=== PATIENT | female | born 2005 | race African-American/Black ===

== ENCOUNTER 2024-06-22 21:50 | Emergency (ER) | payer MEDICAID, SELFPAY ==
[2024-06-22 22:00] VITALS: BP 115/61; PULSE 95; RESP 16; TEMP 36.4; O2SAT 94; BMI 29.9
--- NOTE | 2024-06-22 22:09 | ECG_ITS ---
Test Reason : SYNCOPE Blood Pressure : */* mmHG Vent. Rate : 82 BPM Atrial Rate : 82 BPM P-R Int : 180 ms QRS Dur : 84 ms QT Int : 370 ms P-R-T Axes : 40 10 17 degrees QTcB Int : 432 ms Normal sinus rhythm with sinus arrhythmia Normal ECG No previous ECGs available Referred By: Generic ED Physician Electronically Signed By: Alex Dan
[2024-06-22 22:27] LABS: Basophils Percent Auto 0.2 % (0-2); Eosinophils Absolute Auto 0.2 X10*3/uL (0.0-0.4); Eosinophils Percent Auto 4.5 % (0-4); Hematocrit 35.8 % (37.0-47.0); Hemoglobin 12.4 g/dl (12.0-16.0); Imm Gran Abs Auto 0.01 X10*3/uL (0.00-0.03); Imm Gran Pct Auto 0.2 % (0.0-0.4); Lymphocytes Absolute Auto 2.4 X10*3/uL (1.2-4.9); Lymphocytes Percent Auto 47.9 % (20-40); MANUAL DIFF FLAG NO; Mean Corpuscular HGB Conc 34.6 g/dl (31.0-35.0); Mean Corpuscular Hemoglobin 31.5 pg (27.0-33.0); Mean Corpuscular Volume 90.9 fL (80.0-98.0); Mean Platelet Volume 10.1 fL (9.4-12.3); Monocytes Absolute Auto 0.3 X10*3/uL (0.1-1.2); Monocytes Percent Auto 6.3 % (2-11); Neutrophils Absolute Auto 2.1 x10*3/uL (2.0-8.3); Neutrophils Percent Auto 40.9 % (45-73); Platelet Count 273 X10*3/uL (160-400); Red Blood Count 3.94 X10*6/uL (4.20-5.50); Red Cell Distribution Width 12.3 % (11.0-16.0); White Blood Count 5.1 X10*3/uL (4.8-10.8)
[2024-06-22 22:49] LABS: Alanine Aminotransferase 12 U/L (0-31); Albumin Level 3.8 g/dL (3.5-5.0); Alkaline Phosphatase 73 U/L (39-117); Anion Gap 12 (12-20); Aspartate Amino Transferase 25 U/L (5-31); Bilirubin Total 0.5 mg/dL (0.0-1.0); Blood Urea Nitrogen 9 mg/dL (9-16); Calcium 8.8 mg/dL (8.4-10.2); Carbon Dioxide 24 mmol/L (22-29); Chloride 114 mmol/L (96-108); Creatinine Clr Calc Pharmacy 134.1; Estimated Glomerular Filt Rate > 60; Glucose Random 105 mg/dL (60-115); Potassium 3.6 mmol/L (3.3-5.1); Sodium 146 mmol/L (135-145); Total Protein 7.7 g/dL (6.5-8.0)
[2024-06-22 22:54] VITALS: BP 106/60; PULSE 82; RESP 20; TEMP 36.4; O2SAT 99
[2024-06-22 22:56] LABS: HCG Quantitative < 2 mIU/mL
--- NOTE | 2024-06-22 22:58 | ED.SYNCOPE ---
HPI - Syncope General Chief Complaint: Syncope Stated Complaint: fainted Time Seen by Provider: 06/22/24 22:54 Source: patient Mode of arrival: ambulatory Limitations: no limitations History of Present Illness ED Provider: HPI narrative: Patient is getting over cold around at 21:00 patient was feeling thirsty after waking up went to get some water felt dizzy and passed out slumped down tothe ground no seizure activity no head injury transient loss of consciousness lasting only for few seconds which did not eat all day today Related Data Allergies Allergy/AdvReac Type Severity Reaction Status Date / Time No Known Allergies Allergy Verified 06/22/24 22:12 Review of Systems Review of Systems: Yes all other systems are reviewed and are negative REPLACED BY [facility] Social History Social History Alcohol intake: never Smoked in Last 30 Days: No Use of substances other than those prescribed or required for medical reasons: No Advance Directives: No Advance Directives Information Provided: No Do you have a plan to hurt others: No Plan Patient : No Physical Exam Vital Signs: Vital Signs: Last Vital Signs Temp 97.6 F 06/22/24 22:54 Pulse 75 06/22/24 23:06 Resp 20 06/22/24 22:54 BP 115/67 06/22/24 23:06 Pulse Ox 99 06/22/24 22:54 O2 Del Method Room Air 06/22/24 22:54 BMI result Body Mass Index 29.9 Appearance: Alert. Oriented X3. No acute distress. Normal orthostatic Eyes: PERRLA, No Nystagmus ENT: Pharynx normal. Oral Mucosa moist clear rhinorrhea Neck: Normal inspection. Neck supple. CVS: Normal heart rate and rhythm. Pulses normal. Respiratory: No respiratory distress. Equal air entry bilateral, no wheezing/rales/rhonchi Abdomen: Soft and nontender. Bowel sounds are present, no mass palpable, no CVA tenderness Skin: Skin warm and dry. Normal skin color. Normal skin turgor. Extremities: No lower extremity edema. No calf tenderness Neuro: Oriented X 3. No motor deficit. No sensory deficit.No cerebellar signs , cranial nerves II-XII intact Medical Decision Making Medical Decision Making MDM Narrative: Patient vasovagal episode with upper respiratory symptoms workup showed influenza B patient did not eat all day today give her the food feeling much better will discharge patient home orthostatics were normal Lab Data MDM Lab Attestation statement: I reviewed the patient's lab results. 06/22/24 22:21 06/22/24 22:21 Labs: Lab Results 06/22/24 Range/Units 22:21 WBC 5.1 (4.8-10.8) X10*3/uL RBC 3.94 L (4.20-5.50) X10*6/uL Hgb 12.4 (12.0-16.0) g/dl Hct 35.8 L (37.0-47.0) % MCV 90.9 (80.0-98.0) fL MCH 31.5 (27.0-33.0) pg MCHC 34.6 (31.0-35.0) g/dl RDW 12.3 (11.0-16.0) % Plt Count 273 (160-400) X10*3/uL MPV 10.1 (9.4-12.3) fL Immature Gran % (Auto) 0.2 (0.0-0.4) % Neut % (Auto) 40.9 L (45-73) % Lymph % (Auto) 47.9 H (20-40) % [place] % (Auto) 6.3 (2-11) % Eos % (Auto) 4.5 H (0-4) % Baso % (Auto) 0.2 (0-2) % Lymph # (Auto) 2.4 (1.2-4.9) X10*3/uL [place] # (Auto) 0.3 (0.1-1.2) X10*3/uL Eos # (Auto) 0.2 (0.0-0.4) X10*3/uL Baso # (Auto) 0.0 (0.0-0.2) X10*3/uL Abs Immat Gran (auto) 0.01 (0.00-0.03) X10*3/uL Absolute Neuts (auto) 2.1 (2.0-8.3) x10*3/uL Absolute Nucleated RBC 0.000 (0.0-0.012) X10*3/uL Nucleated RBC % (auto) 0.0 (0.0-0.2) /100WBC Sodium 146 H (135-145) mmol/L Potassium 3.6 (3.3-5.1) mmol/L Chloride 114 H (96-108) mmol/L Carbon Dioxide 24 (22-29) mmol/L Anion Gap 12 (12-20) BUN 9 (9-16) mg/dL Creatinine 0.70 (0.5-1.4) mg/dL Estim Creat Clear Calc 134.1 Estimated GFR > 60 Random Glucose 105 (60-115) mg/dL Calcium 8.8 (8.4-10.2) mg/dL Total Bilirubin 0.5 (0.0-1.0) mg/dL AST 25 (5-31) U/L ALT 12 (0-31) U/L Alkaline Phosphatase 73 (39-117) U/L Total Protein 7.7 (6.5-8.0) g/dL Albumin 3.8 (3.5-5.0) g/dL Beta HCG, Quant < 2 mIU/mL Influenza Type A (PCR) NEGATIVE (Negative) Influenza Type B (PCR) POSITIVE A (Negative) RSV RNA Qual (PCR) NEGATIVE (Negative) SARS-CoV-2 RNA (RT-PCR) NEGATIVE (Negative) Discharge Plan Discharge Clinical Impression: Vasovagal syncope, Influenza Patient Disposition: Home, Self-Care Instructions: Influenza (ED), Near Syncope (ED) Additional Instructions: Drink plenty of fluids You have influenza B Tylenol/Motrin for body aches Print Language: Salvad[place]
[2024-06-22 23:00] VITALS: BP 108/66; PULSE 75
[2024-06-22 23:05] VITALS: BP 105/69; PULSE 74
[2024-06-22 23:06] VITALS: BP 115/67; PULSE 75
[2024-06-22 23:11] LABS: Influenza A PCR NEGATIVE (Negative); Influenza B PCR POSITIVE (Negative); Resp Syncy Virus RNA Qual PCR NEGATIVE (Negative); SARS COV2 PCR INHOUSE NEGATIVE (Negative)
[2024-06-23 00:25] VITALS: BP 109/54; PULSE 69; RESP 17; TEMP 36.6; O2SAT 100
== END 2024-06-23 00:26 | disposition home or self-care (01) ==
PROVIDERS: Emergency Provider Internal Medicine
DX: J10.1 Influenza due to other identified influenza virus with other respiratory manifestations (principal); R55 Syncope and collapse; Z03.818 Encounter for observation for suspected exposure to other biological agents ruled out
CPT/HCPCS: 0241U; 36415; 80053; 84702; 85025; 93005; 99283; 99285

== ENCOUNTER → 2024-06-22 22:09 | Outpatient (BNV) | payer SELFPAY | PROVIDERS: Emergency Provider Internal Medicine; Visit Provider Internal Medicine Cardiovascular Disease | DX: I49.9 Cardiac arrhythmia, unspecified (principal) | CPT/HCPCS: 93010 ==